=== PATIENT | male | born 1995 | race Caucasian/White ===

== ENCOUNTER 2020-11-06 18:45 | Emergency (ER) | payer OTHER, SELFPAY ==
--- NOTE | 2020-11-06 18:56 | ED.SKABFB ---
HPI - Skin/Abscess/Foreign Bdy General Chief complaint: Skin/Abscess/Foreign Body Stated complaint: rash Time Seen by Provider: 11/06/20 18:56 Source: patient Mode of arrival: ambulatory Limitations: no limitations History of Present Illness HPI narrative: Best Murray is a 25 yo male with no PMH is here to [facility] for a rash that is between his fingers up his wrists and his on his back and abdomen and going down onto his hip he says he also has in the buttocks and upper legs Rash. About 2 to 3 weeks ago is pruritic and does not respond to typical [id number] lotions are creams Related Data Allergies Allergy/AdvReac Type Severity Reaction Status Date / Time No Known Allergies Allergy Mild Verified 11/06/20 18:47 Review of Systems Review of Systems: Narrative: CONSTITUTIONAL: Denies fever, chills, sweats. EYES: Denies visual changes, redness, discharge. ENT: Denies rhinorrhea, congestion, sore throat, otalgia. CARDIOVASCULAR: Denies chest pain, palpitations, edema. RESPIRATORY: Denies dyspnea, wheezing, cough GASTROINTESTINAL: Denies abdominal pain, nausea, vomiting, diarrhea. GENITOURINARY: Denies dysuria, hematuria, abnormal discharge SKIN: Rash is papular and pruritic-generalized NEUROLOGIC: Denies numbness, or focal weakness. PSYCHIATRIC: Denies anxiety or depression. PMFSH Past Medical History Medical History No acute medical problems Family History Family History (Updated 11/06/20 @ 19:06 by Suzi Barrera CNP) Other No acute medical problems Social History Social History (Updated 11/06/20 @ 19:07 by Suzi Barrera CNP) Smoking status: Never smoker Alcohol intake: current Gender identity (if verbalized by the patient): Male Comments At time of signature, I agree with nursing past medical, surgical, social and family history. There is no relevant family history pertinent to the presenting complaint. Blood pressure is noted to be elevated diastolically (patient is 7 foot 2 inches tall) mild tachycardia attributed to anxiety Exam Narrative: Exam Narrative: GENERAL: This is a well-nourished, well-developed patient, in mild distress. HEAD: normocephalic, atraumatic. EYES: Sclera clear/white. Vision is grossly intact. EARS: External ears normal Hearing grossly intact. NOSE: External nose normal without nasal discharge, nares without redness, no rhinorrhea. THROAT: Mucous membranes moist, NECK: Neck supple, CARDIOVASCULAR: Regular rate and rhythm without murmurs, gallops, or rubs. RESPIRATORY: Clear to auscultation. Breath sounds equal bilaterally. No wheezes, rales, or rhonchi. GASTROINTESTINAL: Abdomen soft, non-tender, SKIN: warm, intact , generalized papular rash that is pruritic on his front and back torso down his buttocks into his upper legs he has lesions between his fingers onto his wrists. NEURO: awake, alert, and oriented to person, place and time. There were no obvious focal neurologic abnormalities. Steady gait EXTREMITIES: Normal range of motion. BACK: Nontender without deformity Course Course Emergency Course: Patient comes here with history of rash for 2 to 3 weeks his itchy and does not respond to [id number] medications discussed with patient treatment for scabies including washing all clothes and wash all items and vacuuming furniture and rugs he will be given permethrin as well as a Medrol Dosepak and Atarax Follow-up with PCP Vital Signs Vital signs: Vital Signs Temperature 98.7 F 11/06/20 18:58 Pulse Rate 101 H 11/06/20 18:58 Respiratory Rate 18 11/06/20 18:58 Blood Pressure 107/91 H 11/06/20 18:58 Pulse Oximetry 100 11/06/20 18:58 Temperature 98.7 F 11/06/20 18:58 Pulse Rate 101 H 11/06/20 18:58 Respiratory Rate 18 11/06/20 18:58 Blood Pressure 107/91 H 11/06/20 18:58 Pulse Oximetry 100 11/06/20 18:58 MDM - Skin/Abscess/Foreign Bdy Differential Diagnosi
[2020-11-06 18:58] VITALS: BP 107/91; PULSE 101; RESP 18; TEMP 37.1; O2SAT 100
== END 2020-11-06 19:16 | disposition home or self-care (01) ==
PROVIDERS: Emergency Provider Nurse Practitioner
DX: B86 Scabies (principal); S20.363A Insect bite (nonvenomous) of bilateral front wall of thorax, initial encounter; W57.XXXA Bitten or stung by nonvenomous insect and other nonvenomous arthropods, initial encounter
CPT/HCPCS: 99213; G0463